=== PATIENT | female | born 1990 | race Caucasian/White ===

== ENCOUNTER → 2025-09-20 | Outpatient (CLI) | payer OTHER, SELFPAY ==
--- NOTE | 2025-09-20 08:59 | ECHOD_ITS ---
Reason For Study Reason For Study: CHEST DISCOMFORT Procedure This was a 2D Doppler, Color Flow transthoracic echocardiogram. The patient is in sinus rhythm. Exam performed in department. Left Ventricle Normal LV size. The left ventricular ejection fraction is 65 %. No regional wall motion abnormalities noted. Right Ventricle Normal RV size. Normal systolic function. Atria Normal left atrium. Normal right atrium. Mitral Valve Normal mitral valve. Mild (1+) eccentric mitral valve insufficiency. Tricuspid Valve Normal tricuspid valve. Aortic Valve Normal aortic valve. Trisinus/trileaflet aortic valve. Pulmonic Valve Normal pulmonic valve. Great Vessels Normal aortic root. The pulmonary artery is normal size. Inferior vena cava collapse with respiration. Pericardium/Pleural No pericardial effusion. MMode/2D Measurements & Calculations LVIDd: 4.9 cm IVSd: 0.49 cm LAV(MOD- bp): 29.3 ml LVIDs: 3.5 cm LVPWd: 0.63 cm LAV(MOD- bp) Indexed: 18.5 ml/m2 RVDd: 3.2 cm FS: 27.3 % LAV(MOD- sp2): 31.0 ml LAV(MOD- sp4): 27.8 ml LVAd ap4: 30.9 cm2 LVAd ap2: 32.7 cm2 EDV(MOD- bp): 102.2 ml LVLd ap4: 8.2 cm LVLd ap2: 8.1 cm ESV(MOD- bp): 38.0 ml EDV(MOD-sp4): 96.1 ml EDV(MOD-sp2): 105.2 ml EF(MOD- bp): 62.8 % EDV(sp4-el): 98.9 ml EDV(sp2-el): 111.5 ml LVAs ap4: 16.8 cm2 LVAs ap2: 17.1 cm2 LVLs ap4: 6.2 cm LVLs ap2: 6.4 cm ESV(MOD-sp4): 37.0 ml ESV(MOD-sp2): 37.7 ml ESV(sp4-el): 38.7 ml ESV(sp2-el): 38.4 ml EF(MOD-sp4): 61.5 % EF(MOD-sp2): 64.1 % EF(sp4-el): 60.8 % SV(MOD-sp4): 59.1 ml SV(MOD-sp2): 67.5 ml SV(sp4- el): 60.2 ml SI(MOD-sp4): 37.4 ml/m2 SI(MOD-sp2): 42.7 ml/m2 LA dimension(2D): 2.6 cm LA A4 area: 12.0 cm2 RA A4 area: 11.5 cm2 TAPSE: 2.6 cm Time Measurements MV dec time: 0.25 sec Doppler Measurements & Calculations MV E max [place]: 70.4 cm/sec Lat Peak E' [place]: 17.3 cm/sec Med Peak E' [place]: 17.3 cm/sec MV A max [place]: 40.0 cm/sec E/E' lat: 4.1 E/E' med: 4.1 MV E/A: 1.8 MV dec slope: 281.8 cm/sec2 Ao V2 max: 137.3 cm/sec LV V1 max: 104.8 cm/sec Ao max P.5 mmHg LV V1 max P.4 mmHg Ao V2 mean: 97.7 cm/sec LV V1 mean P.9 mmHg Ao mean P.3 mmHg LV V1 mean: 82.5 cm/sec Ao V2 VTI: 29.4 cm LV V1 VTI: 22.2 cm AV (velocity ratio): 0.76 PA V2 max: 76.0 cm/sec ECHO/Echo Complete Interpretation Summary Normal LV size. The left ventricular ejection fraction is 65 %. Mild (1+) eccentric mitral valve insufficiency. Structurally normal valves. Ordering Physician: Juan Manuel Darling Referring Physician: Mitra Sands Performed By: Irma Rust RDCS
--- OUTSIDE RECORDS SUMMARY | 2025-09-20 10:00 | XMS RPT_ITS | CCD ---
Author Organization [facility] Results Test Name Value Interpretation Reference Range Facil ity [facility] 03-06-2019 Hematocrit (Bld) [Volume fraction] 40.9 % Normal 34.0-46.0 [facility] ([place]) Comment on above: Performed By: #### C UR #### [place] [address] Hemoglobin (Bld) [Mass/Vol] 13.7 G/dL Normal 12.0-16.0 [facility] ([place]) Comment on above: Performed By: #### C UR #### [address] 03-05-2019 Hematocrit (Bld) [Volume fraction] 37.8 % Normal 34.0-46.0 [facility] ([place] Comment on above: Performed By: #### U PARTH UA #### [place] [address] Hemoglobin (Bld) [Mass/Vol] 12.9 G/dL Normal 12.0-16.0 [facility] ([place] Comment on above: Performed By: #### U PARTH UA #### [place] [address] .Auto Diffon 03-04-2019 Ammonia (P) [Mass/Vol] 0.70 10 3/mcL Normal 0.09-1.40 [facility] ([place]) Comment on above: Performed By: #### U AMIEben UA #### [place] [address] Basophils (Bld) [#/Vol] 0.00 10 3/mcL Normal 0.00-0.27 [facility] ([place]) Comment on above: Performed By: #### U AMIC UA #### [address] [address] Basophils/100 WBC (Bld) 0.3 % Normal 0.0-2.5 [facility] ([place]) Comment on above: Performed By: #### U AMIC, UA #### [address] [address] Eosinophils (Bld) [#/Vol] 0.00 10 3/mcL Normal 0.00-0.65 [facility] ([place] Comment on above: Performed By: #### U AMIC, UA #### [address] [address] Eosinophils/100 WBC (Bld) 0.2 % Normal 0.0-6.0 [facility] ([place] Comment on above: Performed By: #### U AMIC, UA #### [address] [address] Lymphocytes (Bld) [#/Vol] 1.20 10 3/mcL Normal 0.90-4.32 [facility] ([place] Comment on above: Performed By: #### U AMIC, UA #### [address] [address] Lymphocytes/100 WBC (Bld) 8.3 % Low 20.0-40.0 [facility] ([place] Comment on above: Performed By: #### U AMIC, UA #### [address] [address] Monocytes/100 WBC (Bld) 4.9 % Normal 2.0-13.0 [facility] ([place] Comment on above: Performed By: #### U AMIC, UA #### [address] [address] Neutrophils/100 WBC (Bld) 86.3 % High 50.0-75.0 [facility] ([place] Comment on above: Performed By: #### U AMIC, UA #### [address] [address] .NEUABSon 03-04-2019 Neutrophils (Bld) [#/Vol] 12.90 10 3/mcL High 2.25-8.10 [facility] ([place] Comment on above: Performed By: #### U AMIC, UA #### [place] [address] ABIDon 03-04-2019 Antibody ID Passive Anti-D [facility] ([place]) Comment on above: Order Comment: Order ed by Discern Expert Performed By: #### U AMIC, UA #### [place] [address] Autoon 03-04-2019 Auto Control Negative Normal [facility] ([place]) Comment on above: Order Comment: Order ed by Discern Expert Performed By: #### U AMIC, UA #### [place] [address] CBCon 03-04-2019 Erythrocyte distribution width (RBC) [Ratio] 13.4 % Normal 11.5-15.5 [facility] ([place] Comment on above: Performed By: #### U AMIC, UA #### [place] [address] Hematocrit (Bld) [Volume fraction] 40.5 % Normal 34.0-46.0 [facility] ([place] Comment on above: Performed By: #### U AMIC, UA #### [place] [address] Hemoglobin (Bld) [Mass/Vol] 13.6 G/dL Normal 12.0-16.0 [facility] ([place] Comment on above: Performed By: #### U AMIC, UA #### [place] [address] MCH (RBC) [Entitic mass] 32.6 pg Normal 27.0-33.0 [facility] ([place] Comment on above: Performed By: #### U AMIC, UA #### [place] [address] MCHC (RBC) [Mass/Vol] 33.6 G/dL Normal 32.0-36.0 [facility] ([place] Comment on above: Performed By: #### U AMIC, UA #### [address] [address] MCV (RBC) [Entitic vol] 97.0 fL Normal 80.0-99.0 [facility] ([place] Comment on above: Performed By: #### Pablo ALBA, UA #### [address] [address] Platelet mean volume (Bld) [Entitic vol] 7.6 fL Normal 6.6-10.5 [facility] ([place] Comment on above: Performed By: #### Pablo ALBA, UA #### [place] [id number] Platelets (Bld) [#/Vol] 175 10 3/mcL Normal 150-450 [facility] ([place] Comment on above: Performed By: #### Pablo ALBA, UA #### [place] [id number] RBC (Bld) [#/Vol] 4.18 10 6/mcL Normal 4.10-5.30 [facility] ([place]) Comment on above: Performed By: #### Pablo ALBA, UA #### [place] [id number] WBC (Bld) [#/Vol] 15.00 10 3/mcL High 4.50-10.80 [facility] ([place]) Comment on above: Performed By: #### Pablo ALBA, UA #### [place] [address] TABOon 03-04-2019 ABO/Rh Interp Negative [facility] ([place] Comment on above: Performed By: #### U PARTH, UA #### [place] [address] TABSon 03-04-2019 Antibody Screen Tango Positive Normal [facility] ([place] Comment on above: Performed By: #### U PARTH, UA #### [place] [id number] [facility] Cytology Reporton 2018 [facility] Cytology Report . Pathology Reports Accession: Collected Date/Time: Received Date/Time: Pathologist: [id number] 02/05/2019 11:59 EDT 02/05/2019 18:00 EDT [facility] Cytology Report SPECIMEN: Specimen Description: Liquid Prep Reflex ASCUS Specimen: Cervical/Endocervical Screening or Diagnostic: Screening RELEVANT HISTORY: LMP: SPECIMEN ADEQUACY: SATISFACTORY FOR EVALUATION ENDOCERVICAL/TRANSFOR MATIONAL ZONE COMPONENT ABSENT/INSUFFICIENT INTERPRETATION/RESULT S: NEGATIVE FOR INTRAEPITHELIAL LESION OR MALIGNANCY COMMENT: This Pap Test was successfully processed and evaluated with the assistance of the iSquarePrep Test Imaging System. Electronically Signed by Pathology report verified by [facility] Screened by: [place] Electronically signed by Katherine MAY (ASCP) Sign-Out Date: 02/09/2019 11:40 Performing Lab: [facility], [address] [place] [address] Disclaimer The Pap test is a screening test for cervical cancer. As evidenced by published data, it is subject to both inherent false negative and false positive results. Your patient's results should be interpreted in context with pertinent clinical history including gynecological examination. Normal [facility] ([place]) Comment on above: Performed By: #### U AMIC, UA #### [place] [address] CTPCRon 02-08-2019 C. trachomatis Interp Normal See CT Interp N [facility] ([place]) Comment on above: Result Comment: C. t rachomatis DNA not detected. Specimen is presumptive negative for C. trachomatis. A negative result does not preclude C. trachomatis infection because results depend on adequate specimen collection, absence of inhibitors, and sufficient DNA to be detected. See CT Interp N Performed By: #### C TPCR, NGPCR1 #### [place] [address] C.trachomatis PCR Negative Normal Negative [facility] ([place]) Comment on above: Result Comment: Mole cular (PCR) assay performed on the [employer] [place] 4800 system. Performed By: #### C TPCR, NGPCR1 #### [place] [address] Chlam Source Cervix Normal [facility] ([place]) Comment on above: Performed By: #### C TPCR, NGPCR1 #### [place] [address] NGPCRon 02-08-2019 GC PCR Source Cervix Normal [facility] ([place]) Comment on above: Performed By: #### U AMIC, UA #### [address] [address] N. gonorrhoeae (PCR) Negative Normal Negative [facility] ([place]) Comment on above: Result Comment: Mole cular (PCR) assay performed on the [employer] [place] 4800 System. Performed By: #### U AMIC, UA #### [address] [address] N. gonorrhoeae Interp Normal See NG Interp N [facility] ([place]) Comment on above: Result Comment: N. g onorrhoeae DNA not detected. Specimen is presumptive negative for N. gonorrhoeae. A negative result does not preclude Neisseria gonorrhoeae infection because results depend on adequate specimen collection, absence of inhibitors, and sufficient DNA to be detected. See NG Interp N Performed By: #### U AMIC, UA #### [address] [address] GBPCRon 02-07-2019 GBPCR . MICRO - Microbiology PROCEDURE: Group B Strep PCR [*1] SOURCE: Vaginal Rectal BODY SITE: COLLECTED DATE/TIME: 02/05/2019 11:55 EDT RECEIVED DATE/TIME: 02/06/2019 08:28 EDT START DATE/TIME: 02/06/2019 08:29 EDT FREE TEXT SOURCE: FINAL REPORTS Final Report [] Verified Date/Time/Personnel: 02/07/2019 14:26 EDT Group B Beta Hemolytic Strep (Strep agalactiae) Group B Streptococcus DNA detected by Real-Time Polymerase Chain Reaction (PCR). Organism viability cannot be determined since DNA may persist in the absence of viable organisms. As with all PCR based in vitro tests, extremely low levels of target below the limit of detection of the assay may be detected, but results may not be reproducible. Sensitivity testing not available with this method. Performing Locations *1: This test was performed at: [address], [address] , [facility] Normal [facility] ([place]) Comment on above: Performed By: #### G BPCR #### [place] [address] HIVon 02-06-2019 HIV 1/2 Ab Normal Negative [facility] ([place]) Comment on above: Result Comment: Nega tive Specimen is negative for anti-HIV-1 and anti-HIV-2. Performed By: #### A SHAUN, RPR, ADIFF, HIV, CBC #### [place] [address] RPRon 02-06-2019 Reagin Ab RPR Ql (S) Non-Reactive Normal Non-Reactive [facility] ([place]) Comment on above: Result Comment: The RPR test is a non-treponemal assay useful as an aid in the diagnosis of primary and secondary syphilis. It converts to positive generally within 2 weeks after the appearance of a lesion. This test is also useful for monitoring response to antibiotic therapy. A positive RPR screening test will be followed by the FTA ABS test. False positive RPR tests may occur in 1) patients with underlying autoimmune disorders, 2) elderly patients, 3) , and 4) other conditions with abnormal serum globulins. Performed By: #### A SHAUN, RPR, ADIFF, HIV, CBC #### [place] [address] .Auto Diffon 02-05-2019 Ammonia (P) [Mass/Vol] 0.80 10 3/mcL Normal 0.09-1.40 [facility] ([place] Comment on above: Performed By: #### A SHAUN, RPR, ADIFF, HIV, CBC #### [place] [address] Basophils (Bld) [#/Vol] 0.00 10 3/mcL Normal 0.00-0.27 [facility] ([place] Comment on above: Performed By: #### A SHAUN, RPR, ADIFF, HIV, CBC #### [place] [address] Basophils/100 WBC (Bld) 0.4 % Normal 0.0-2.5 [facility] ([place] Comment on above: Performed By: #### A SHAUN, RPR, ADIFF, HIV, CBC #### [address] [address] Eosinophils (Bld) [#/Vol] 0.10 10 3/mcL Normal 0.00-0.65 [facility] ([place]) Comment on above: Performed By: #### A SHAUN, RPR, ADIFF, HIV, CBC #### [address] [address] Eosinophils/100 WBC (Bld) 1.0 % Normal 0.0-6.0 [facility] ([place] Comment on above: Performed By: #### A SHAUN, RPR, ADIFF, HIV, CBC #### [address] [address] Lymphocytes (Bld) [#/Vol] 1.50 10 3/mcL Normal 0.90-4.32 [facility] ([place]) Comment on above: Performed By: #### A SHAUN, RPR, ADIFF, HIV, CBC #### [address] [address] Lymphocytes/100 WBC (Bld) 17.3 % Low 20.0-40.0 [facility] ([place] Comment on above: Performed By: #### A SHAUN, RPR, ADIFF, HIV, CBC #### [address] [address] Monocytes/100 WBC (Bld) 9.2 % Normal 2.0-13.0 [facility] ([place] Comment on above: Performed By: #### A SHAUN, RPR, ADIFF, HIV, CBC #### [address] [address] Neutrophils/100 WBC (Bld) 72.1 % Normal 50.0-75.0 [facility] ([place] Comment on above: Performed By: #### A SHAUN, RPR, ADIFF, HIV, CBC #### [address] [address] .NEUABSon 02-05-2019 Neutrophils (Bld) [#/Vol] 6.20 10 3/mcL Normal 2.25-8.10 [facility] ([place] Comment on above: Performed By: #### A SHAUN, RPR, ADIFF, HIV, CBC #### [address] [address] CBCon 02-05-2019 Erythrocyte distribution width (RBC) [Ratio] 13.4 % Normal 11.5-15.5 [facility] ([place] Comment on above: Performed By: #### A SHAUN, RPR, ADIFF, HIV, CBC #### [place] [address] Hematocrit (Bld) [Volume fraction] 34.7 % Normal 34.0-46.0 [facility] ([place] Comment on above: Performed By: #### A SHAUN, RPR, ADIFF, HIV, CBC #### [place] [address] Hemoglobin (Bld) [Mass/Vol] 11.9 G/dL Low 12.0-16.0 [facility] ([place] Comment on above: Performed By: #### A SHAUN, RPR, ADIFF, HIV, CBC #### [place] [address] MCH (RBC) [Entitic mass] 33.1 pg High 27.0-33.0 [facility] ([place] Comment on above: Performed By: #### A SHAUN, RPR, ADIFF, HIV, CBC #### [place] [address] MCHC (RBC) [Mass/Vol] 34.2 G/dL Normal 32.0-36.0 [facility] ([place] Comment on above: Performed By: #### A SHAUN, RPR, ADIFF, HIV, CBC #### [place] [address] MCV (RBC) [Entitic vol] 96.7 fL Normal 80.0-99.0 [facility] ([place] Comment on above: Performed By: #### A SHAUN, RPR, ADIFF, HIV, CBC #### [place] [address] Platelet mean volume (Bld) [Entitic vol] 7.6 fL Normal 6.6-10.5 [facility] ([place] Comment on above: Performed By: #### A SHAUN, RPR, ADIFF, HIV, CBC #### [address] [address] Platelets (Bld) [#/Vol] 194 10 3/mcL Normal 150-450 [facility] ([place] Comment on above: Performed By: #### A SHAUN, RPR, ADIFF, HIV, CBC #### [place] [id number] RBC (Bld) [#/Vol] 3.59 10 6/mcL Low 4.10-5.30 [facility] ([place]) Comment on above: Performed By: #### A SHAUN, RPR, ADIFF, HIV, CBC #### [address] [address] WBC (Bld) [#/Vol] 8.70 10 3/mcL Normal 4.50-10.80 [facility] ([place]) Comment on above: Performed By: #### A SHAUN, RPR, ADIFF, HIV, CBC #### [address] [address] CURon 01-10-2019 CUR . MICRO - Microbiology PROCEDURE: Urine Culture [*1] SOURCE: Urine BODY SITE: COLLECTED DATE/TIME: 01/08/2019 11:13 EDT RECEIVED DATE/TIME: 01/08/2019 17:36 EDT START DATE/TIME: 01/08/2019 17:36 EDT FREE TEXT SOURCE: FINAL REPORTS Final Report [] Verified Date/Time/Personnel: 01/10/2019 08:06 EDT >100,000 organisms per mL Mixed without predominant isolate(s). Sensitivity Testing not indicated. Probably contamination. Repeat culture suggested. PRELIMINARY REPORTS Preliminary Report [] Verified Date/Time/Personnel: 01/09/2019 08:58 EDT Culture results pending. Performing Locations *1: This test was performed at: [facility], [address] [place] [address], [id number] ([place]) Comment on above: Performed By: #### C UR #### [address] [address] UAon 01-08-2019 Color (U) Yellow Normal [facility] ([place]) Comment on above: Performed By: #### U AMIC, UA #### [place] [address] Glucose (U) [Mass/Vol] Negative Normal Negative [facility] ([place]) Comment on above: Performed By: #### U AMIC, UA #### [place] [address] Ketones Ql (U) Negative Normal Neg-Trace [facility] ([place]) Comment on above: Performed By: #### U AMIC, UA #### [place] [address] UA Appear Hazy Clear [facility] ([place]) Comment on above: Performed By: #### U AMIC, UA #### [place] [address] UA Blood Negative Normal Neg-Trace [facility] ([place] Comment on above: Performed By: #### U AMIC, UA #### [place] [address] UA Leuk Est Trace Normal Negative [facility] ([place]) Comment on above: Performed By: #### U AMIC, UA #### [place] [address] UA Nitrite Negative Normal Negative [facility] ([place] Comment on above: Performed By: #### U AMIC, UA #### [place] [address] UA pH 8.0 Normal 5.0 - 8.0 [facility] ([place] Comment on above: Performed By: #### U AMIC, UA #### [place] [address] UA Protein Negative Normal Negative [facility] ([place] Comment on above: Performed By: #### U AMIC, UA #### [place] [address] UA Spec Grav <=1.005 1.006-1.029 [facility] ([place]) Comment on above: Performed By: #### U AMIC, UA #### [place] [address] UA Specimen Type Not Given Normal [facility] ([place] Comment on above: Performed By: #### U AMIC, UA #### [address] [address] UA Urobilinogen 0.2 E.U./dL Normal 0.2-1.0 [facility] ([place] Comment on above: Performed By: #### U AMIC, UA #### [place] [address] Urobilinogen Qn (U) Negative Normal Neg-Trace [facility] ([place] Comment on above: Performed By: #### U AMIC, UA #### [place] [address] UAMICon 01-08-2019 RBC (U) [#/Vol] Negative Normal 0-2 [facility] ([place]) Comment on above: Performed By: #### U AMIC, UA #### [place] [address] UA Bacteria Trace Negative [facility] ([place]) Comment on above: Performed By: #### U AMIC, UA #### [place] [address] UA Squam Epithelial 5-10 Normal 0-20 [facility] ([place] Comment on above: Performed By: #### U AMIC, UA #### [place] [address] UA WBC Negative Normal 0-5 [facility] ([place] Comment on above: Performed By: #### U AMIC, UA #### [place] [address] Summary Purpose Family History No Family History Records Found Advance Directives No Advanced Directives Records Found Additional Source Comments INFORMATION SOURCE (unrecogn ized section and content) DATE CREATED AUTHOR 04/07/2019 [facility] ([place]) FOR RECORDS PERTAINING TO PATIENTS WHO ARE OR HAVE BEEN ENROLLED IN A CHEMICAL DEPENDENCY/SUBSTANCEABUSE PROGRAM, SOME INFORMATION MAY BE OMITTED. This clinical summary was aggregated from multiple sources. Caution should be exercised in using it in the provision of clinical care. This summary normalizes information from multiple sources, and as a consequence, information in this document may materially change the coding, format and clinical context of patient data. In addition, data may be omitted in some cases. CLINICAL DECISIONS SHOULD BE BASED ON THE PRIMARY CLINICAL RECORDS. [facility]. provides no warranty or guarantee of the accuracy or completeness of information in this document.
== END | disposition home or self-care (01) ==
PROVIDERS: PCP Nurse Practitioner Family
DX: R07.89 Other chest pain (principal)
CPT/HCPCS: 93306